=== PATIENT | female | born 1960 | race American Indian/Alaskan Native ===

== ENCOUNTER 2019-01-27 00:04 | Emergency (ER) | payer MEDICAID ==
[2019-01-27] MEDS ORDERED: KEPPRA PO ONE (03:16)
--- NOTE | 2019-01-27 03:23 | Emergency Department Report ---
ED Seizure HPI - General Chief Complaint: Seizure Stated Complaint: SEIZURES Time Seen by Provider: 01/27/19 02:42 Source: patient, family Mode of arrival: Ambulatory Limitations: No Limitations - History of Present Illness Initial Comments: Mrs. Loco is a 58 yo female who has had seizures for the past year since diagnosed with CVA at [facility]. Seizures occur every month but more often recently. Has lost access to care but has new insurance. Has been healthy otherwise. requested refill of acyclovir. She normally has generalized tonic clonic seizures which last 45 seconds or less. MD Complaint: seizure -: month(s) (1-3/months) Description of Episode: loss of consciousness Witnessed:: Yes Trauma: No Seizure History: known seizure disorder Associated Symptoms: denies other symptoms - Related Data Previous Rx's Medication Instructions Recorded Last Taken Type Acyclovir 800 mg PO DAILY 30 Days #30 tablet 01/27/19 Unknown Rx levETIRAcetam [Keppra] 500 mg PO BID 30 Days #60 tablet 01/27/19 Unknown Rx Allergies Allergy/AdvReac Type Severity Reaction Status Date / Time No Known Allergies Allergy Unverified 01/27/19 00:05 ED Review of Systems ROS: Stated complaint: SEIZURES Other details as noted in HPI Comment: All other systems reviewed and negative Constitutional: denies: fever, malaise Cardiovascular: denies: chest pain ED Past Medical Hx - Past Medical History Previous Medical History?: Yes Hx Seizures: Yes - Surgical History Past Surgical History?: No - Social History Smoking Status: Former Smoker Substance Use Type: None - Medications Home Medications: Home Medications Medication Instructions Recorded Confirmed Last Taken Type Acyclovir 800 mg PO DAILY 30 Days #30 tablet 01/27/19 Unknown Rx levETIRAcetam [Keppra] 500 mg PO BID 30 Days #60 tablet 01/27/19 Unknown Rx ED Physical Exam - General Limitations: No Limitations, Other (plastic bag full of empty prescription bottles on stretcher) General appearance: alert, in no apparent distress - Head Head exam: Present: atraumatic, normocephalic - Eye Eye exam: Present: normal appearance - ENT ENT exam: Present: mucous membranes moist - Neck Neck exam: Present: normal inspection, full ROM - Respiratory Respiratory exam: Present: normal lung sounds bilaterally. Absent: respiratory distress, wheezes, rales, rhonchi - Cardiovascular Cardiovascular Exam: Present: regular rate, normal rhythm, normal heart sounds. Absent: systolic murmur, diastolic murmur, rubs, gallop - GI/Abdominal GI/Abdominal exam: Present: soft, normal bowel sounds. Absent: distended, tenderness, guarding, rebound - Extremities Exam Extremities exam: Present: normal inspection - Back Exam Back exam: Present: normal inspection - Neurological Exam Neurological exam: Present: alert, oriented X3 - Psychiatric Psychiatric exam: Present: normal affect, normal mood - Skin Skin exam: Present: warm, dry, intact, normal color. Absent: rash ED Course Vital Signs 01/27/19 00:12 Temperature 98.3 F Pulse Rate 71 Respiratory 20 Rate Blood Pressure 123/65 O2 Sat by Pulse 99 Oximetry ED Medical Decision Making - Medical Decision Making breakthrough seizures with hx of seizure disorder, given PO keppra load in ED refills provided for acyclovir and keppra Critical care attestation.: If time is entered above; I have spent that time in minutes in the direct care of this critically ill patient, excluding procedure time. ED Disposition Clinical Impression: Seizure, Medication refill Disposition: DC-01 TO HOME OR SELFCARE Is pt being admited?: No Does the pt Need Aspirin: No Condition: Stable Additional Instructions: Please follow up with doctors provided. Prescriptions: Acyclovir 800 mg PO DAILY 30 Days #30 tablet levETIRAcetam [Keppra] 500 mg PO BID 30 Days #60 tablet Referrals: ALIE FOSTER MD [Staff Physician] - 3-5 Days ARIANNA GARCIA MD [Referring] - 3-5 Days DANIELS ИВАН PEDROZA MD [Primary Care Provider] - 3-5 Days
[2019-01-27 03:51] VITALS: BP 110/57
== END 2019-01-27 03:51 | disposition home or self-care (01) ==
LOC: ED 00:04
DX: G40.909 Epilepsy, unspecified, not intractable, without status epilepticus (principal); Z76.0 Encounter for issue of repeat prescription; Z87.891 Personal history of nicotine dependence

== ENCOUNTER 2022-02-24 19:08 | Emergency (ER) | payer MEDICAID ==
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
[2022-02-25 06:07] VITALS: BP 140/62
== END 2022-02-25 06:06 | disposition home or self-care (01) ==
LOC: ED 19:08
DX: S39.012A Strain of muscle, fascia and tendon of lower back, initial encounter (principal); M19.90 Unspecified osteoarthritis, unspecified site; R56.9 Unspecified convulsions; Z87.891 Personal history of nicotine dependence; Z79.899 Other long term (current) drug therapy; V89.2XXA Person injured in unspecified motor-vehicle accident, traffic, initial encounter; Y93.89 Activity, other specified; Y92.89 Other specified places as the place of occurrence of the external cause; Y99.8 Other external cause status
CPT/HCPCS: 72100; 99283